=== PATIENT | male | born 1980 | race Caucasian/White ===

== ENCOUNTER 2017-07-06 21:47 | Emergency (ER) | payer OTHER ==
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
[2017-07-06 22:02] VITALS: BP 157/110; PULSE 95; RESP 20; O2SAT 100
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
== END 2017-07-06 23:46 | disposition home or self-care (01) ==
LOC: SED 21:47
DX: S01.01XA Laceration without foreign body of scalp, initial encounter (principal); S09.8XXA Other specified injuries of head, initial encounter; W22.8XXA Striking against or struck by other objects, initial encounter; Y93.89 Activity, other specified; Y92.481 Parking lot as the place of occurrence of the external cause; Y99.8 Other external cause status